=== PATIENT | female | born 2000 | race Hispanic/Latino ===

== ENCOUNTER → 2024-11-10 | Outpatient (REF) | LOC: M LAB 12:16 | PROVIDERS: ATTEND Family Medicine | DX: Z01.89 Encounter for other specified special examinations (principal) ==

== ENCOUNTER 2025-09-11 13:04 | Emergency (ER) | payer OTHER ==
[~2025-09-11] VITALS: Ht 157.5 cm; Wt 88.2 kg
[2025-09-11] MEDS ORDERED: AMOX875T2 PO (17:20)
[2025-09-11 17:26] VITALS: BP 133/81; TEMP 98.2; O2SAT 98
== END 2025-09-11 17:27 | disposition home or self-care (01) ==
LOC: M ED 13:04
DX: H04.321 Acute dacryocystitis of right lacrimal passage (principal); Z79.2 Long term (current) use of antibiotics